=== PATIENT | male | born 1990 | race Caucasian/White ===

== ENCOUNTER 2018-12-24 23:48 | Emergency (ER) | payer OTHER ==
[2018-12-25] MEDS: IBUPROFEN 600 MG TAB PO (00:34)
== END 2018-12-25 02:02 | disposition home or self-care (01) ==
LOC: FTE 23:48
DX: S82.451A Displaced comminuted fracture of shaft of right fibula, initial encounter for closed fracture (principal); F17.210 Nicotine dependence, cigarettes, uncomplicated; W01.0XXA Fall on same level from slipping, tripping and stumbling without subsequent striking against object, initial encounter; Y92.9 Unspecified place or not applicable
CPT/HCPCS: 29515; 73610-RT; 93971; 99284-25